=== PATIENT | male | born 1960 | race African-American/Black ===

== ENCOUNTER 2024-08-12 12:15 | Inpatient (IN) | payer OTHER ==
[2024-08-12 12:54] VITALS: BMI 24.7
[2024-08-12] MEDS ORDERED: guaiFENesin 600 MG TABLET.ER (FP) PO PRN (12:56)
[2024-08-12] MEDS ORDERED: DICYCLOMINE HCL 10 MG CAPSULE PO PRN (12:56)
[2024-08-12] MEDS ORDERED: LOPERAMIDE HCL 2 MG CAPSULE PO PRN (12:56)
[2024-08-12] MEDS ORDERED: NICOTINE POLACRILEX 2 MG LOZENGE BC PRN (12:56)
[2024-08-12] MEDS ORDERED: BENZOCAINE/MENTHOL (CHLORASEPTIC ) LOZENGE MM PRN (12:56)
[2024-08-12] MEDS ORDERED: BISMUTH SUBSALICYLATE 262 MG/15 ML BTL PO PRN (12:56)
[2024-08-12] MEDS ORDERED: IBUPROFEN 600 MG TABLET (FP) PO PRN (12:56)
[2024-08-12] MEDS ORDERED: IBUPROFEN 400 MG TABLET (FP) PO PRN (12:56)
[2024-08-12] MEDS ORDERED: ACETAMINOPHEN 325 MG TABLET (FP) PO PRN (12:56)
[2024-08-12] MEDS ORDERED: POLYETHYLENE GLYCOL (HEALTHYLAX) 3350 17 GM PACKET PO PRN (12:56)
[2024-08-12] MEDS ORDERED: MAG HYDROX/AL HYDROX/SIMETH 30 ML UNIT-DOSE CUP PO PRN (12:56)
[2024-08-12] MEDS ORDERED: NICOTINE POLACRILEX 2 MG GUM BUC PRN (12:56)
[2024-08-12] MEDS ORDERED: BENZONATATE 200 MG CAPSULE PO PRN (12:56)
[2024-08-12] MEDS ORDERED: METHOCARBAMOL 500 MG TABLET PO PRN (12:56)
[2024-08-12] MEDS ORDERED: MAGNESIUM HYDROX 2400MG/30ML ORAL SUSPENSION 30 ML CUP PO PRN (12:56)
[2024-08-12] MEDS ORDERED: NALOXONE (NARCAN) HCL 4 MG/0.1 ML SPRAY NS PRN (12:56)
[2024-08-12] MEDS ORDERED: ALBUTEROL SO4 HFA INHALER IH PRN (16:06)
[2024-08-12] MEDS: OLANZapine 7.5 MG TABLET PO SCH (22:47)
[2024-08-12] MEDS: MELATONIN 5 MG TABLETS PO SCH (22:48)
[2024-08-12] MEDS: TAMSULOSIN HCL 0.4 MG CAP PO SCH (22:48)
[2024-08-12] MEDS: THIAMINE 100 MG TABLET PO SCH (22:48)
[2024-08-12] MEDS: BUDESONIDE/FORMETEROL FUMARATE 160/4.5 mcg INHALER IH SCH (22:48)
[2024-08-13] MEDS: SERTRALINE HCL 50 MG TABLET (FP) PO SCH (09:43)
[2024-08-13] MEDS: FOLIC ACID 1 MG TABLET (FP) PO SCH (09:43)
[2024-08-13] MEDS: PRENATAL VITAMINS W/ FOLIC ACID TABLET (FP) PO SCH (09:43)
[2024-08-13] MEDS: TIOTROPIUM BROMIDE 2.5 MCG (SPIRIVA) RESPIMAT INHALER IH SCH (09:47)
[2024-08-13] MEDS: CHOLECALCIFEROL (VIT D3) 5000 UNITS (125 MCG) CAP PO SCH (10:49)
[2024-08-13 11:51] LABS: EPI CELLS 0 /uL (0-25.1); HYALINE CASTS 1 /uL (0-3.1); PH,URINE 7.5 (5.0-8.0); URINE APPEARANCE CLEAR; URINE BACTERIA 3167 /uL (0-1359); URINE BILIRUBIN NEGATIVE (NEGATIVE); URINE COLOR YELLOW; URINE GLUCOSE (UA) NEGATIVE (NEGATIVE); URINE KETONE NEGATIVE (NEGATIVE); URINE LEUK ESTERASE 2+ (NEGATIVE); URINE NITRITE NEGATIVE (NEGATIVE); URINE PROTEIN NEGATIVE (NEGATIVE); URINE RBC 3 /uL (0-23.9); URINE UROBILINOGEN 0.2 mg/dL (0.2-1.0); URINE WBC 107 /uL (0-25.8)
[2024-08-13] MEDS ORDERED: diazePAM 5 MG TABLET PO PRN (12:30)
[2024-08-13] MEDS: NITROFURANTOIN MONOHYD/M-CRYST 100 MG CAPSULE PO SCH (13:44)
[2024-08-13] MEDS: diazePAM 5 MG TABLET PO SCH (17:18)
[2024-08-14] MEDS: ONDANSETRON *ODT* 4 MG TABLET SL PRN (17:18)
[2024-08-15] MEDS: diazePAM 5 MG TABLET PO SCH (06:04)
[2024-08-16] MEDS: diazePAM 5 MG TABLET PO SCH (05:58)
[2024-08-17] MEDS: diazePAM 5 MG TABLET PO ONE (07:16)
[2024-08-17 12:38] VITALS: BP 122/77; PULSE 90; RESP 18; TEMP 97.8
== END 2024-08-17 14:25 | disposition other institution (70) | DRG 774 ==
LOC: YASAS 12:15 → Y3N 14:40
PROVIDERS: ADMIT Allergy & Immunology; ATTEND Family Medicine Addiction Medicine
PROC: HZ2ZZZZ Detoxification Services for Substance Abuse Treatment (ICD-10-PCS; principal; 2024-08-12)
DX: F10.230 Alcohol dependence with withdrawal, uncomplicated (principal); F14.20 Cocaine dependence, uncomplicated; F17.210 Nicotine dependence, cigarettes, uncomplicated; F20.0 Paranoid schizophrenia; G47.00 Insomnia, unspecified; I10 Essential (primary) hypertension; J45.909 Unspecified asthma, uncomplicated; N39.0 Urinary tract infection, site not specified; N40.0 Benign prostatic hyperplasia without lower urinary tract symptoms; R53.1 Weakness; Z99.89 Dependence on other enabling machines and devices; Z88.8 Allergy status to other drugs, medicaments and biological substances
CPT/HCPCS: 80305; 80307; 81003; 87811; Q0162

== ENCOUNTER 2024-08-17 14:36 | Inpatient (IN) | payer OTHER ==
[2024-08-17] MEDS ORDERED: BENZOCAINE/MENTHOL (CHLORASEPTIC ) LOZENGE MM PRN (17:15)
[2024-08-17] MEDS ORDERED: BENZONATATE 200 MG CAPSULE PO PRN (17:15)
[2024-08-17] MEDS ORDERED: NALOXONE HCL 0.4 MG/ML VIAL IVPUSH PRN (17:15)
[2024-08-17] MEDS ORDERED: IBUPROFEN 600 MG TABLET (FP) PO PRN (17:15)
[2024-08-17] MEDS ORDERED: NICOTINE POLACRILEX 2 MG GUM BUC PRN (17:15)
[2024-08-17] MEDS ORDERED: NALOXONE (NARCAN) HCL 4 MG/0.1 ML SPRAY NS PRN (17:15)
[2024-08-17] MEDS ORDERED: MAGNESIUM HYDROX 2400MG/30ML ORAL SUSPENSION 30 ML CUP PO PRN (17:15)
[2024-08-17] MEDS ORDERED: ALBUTEROL SO4 HFA INHALER IH PRN (17:15)
[2024-08-17] MEDS ORDERED: IBUPROFEN 400 MG TABLET (FP) PO PRN (17:15)
[2024-08-17] MEDS ORDERED: NICOTINE POLACRILEX 2 MG LOZENGE BC PRN (17:15)
[2024-08-17] MEDS ORDERED: MAG HYDROX/AL HYDROX/SIMETH 30 ML UNIT-DOSE CUP PO PRN (17:15)
[2024-08-17] MEDS ORDERED: POLYETHYLENE GLYCOL (HEALTHYLAX) 3350 17 GM PACKET PO PRN (17:15)
[2024-08-17] MEDS ORDERED: guaiFENesin 600 MG TABLET.ER (FP) PO PRN (17:15)
[2024-08-17] MEDS ORDERED: LOPERAMIDE HCL 2 MG CAPSULE PO PRN (17:15)
[2024-08-17] MEDS: MELATONIN 5 MG TABLETS PO SCH (21:52)
[2024-08-17] MEDS: THIAMINE 100 MG TABLET PO SCH (21:53)
[2024-08-17] MEDS: TAMSULOSIN HCL 0.4 MG CAP PO SCH (21:53)
[2024-08-17] MEDS: OLANZapine 7.5 MG TABLET PO SCH (21:53)
[2024-08-17] MEDS: NITROFURANTOIN MACROCRYSTAL 50 MG CAPSULE (FP) PO SCH (21:54)
[2024-08-17] MEDS: BUDESONIDE/FORMETEROL FUMARATE 160/4.5 mcg INHALER IH SCH (21:59)
[2024-08-18] MEDS: PRENATAL VITAMINS W/ FOLIC ACID TABLET (FP) PO SCH ×2 (06:46→09:45)
[2024-08-18 07:50] VITALS: RESP 18
[2024-08-18] MEDS: SERTRALINE HCL 50 MG TABLET (FP) PO SCH (09:45)
[2024-08-18] MEDS: FOLIC ACID 1 MG TABLET (FP) PO SCH (09:45)
[2024-08-18] MEDS: CHOLECALCIFEROL (VIT D3) 5000 UNITS (125 MCG) CAP PO SCH (09:46)
[2024-08-18] MEDS: TIOTROPIUM BROMIDE 2.5 MCG (SPIRIVA) RESPIMAT INHALER IH SCH (09:47)
[2024-08-18] MEDS ORDERED: PATIENT'S OWN MEDICATION (NON-FORMULARY) (Tiotropium Bromide [Spiriva Handihaler] 18 MCG C IH SCH (10:00)
[2024-08-18] MEDS ORDERED: PATIENT'S OWN MEDICATION (NON-FORMULARY) (Sertraline Hcl [Zoloft] 100 MG Tablet) PO SCH (10:00)
[2024-08-18] MEDS: ACETAMINOPHEN 325 MG TABLET (FP) PO PRN (18:11)
[2024-08-19 06:50] VITALS: BP 129/84; PULSE 82; TEMP 97.2
[2024-08-19 11:40] LABS: HEMATOCRIT 36.5 % (35.4-49); HEMOGLOBIN 12.4 GM/dL (11.7-16.9); MCH 30.8 pg (25.7-33.7); MCHC 33.9 g/dl (32.0-35.9); MEAN CELL VOLUME 91.1 fl (80-96); MEAN PLT VOLUME 8.6 fl (7.5-11.1); PLATELET COUNT 164 10^3/uL (134-434); RBC 4.01 M/mm3 (4.00-5.60); RDW 15.5 % (11.9-15.9); WHITE BLOOD COUNT 6.1 K/mm3 (4.0-10.0)
[2024-08-19 11:42] LABS: POTASSIUM 4.7 mmol/L (3.5-5.1)
[2024-08-19 11:47] LABS: BLOOD UREA NITROGEN 21.5 mg/dL (7-18)
[2024-08-19 11:48] LABS: ALBUMIN 3.2 g/dl (3.4-5.0); CALCIUM 9.6 mg/dL (8.5-10.1)
[2024-08-19 11:52] LABS: BILIRUBIN,TOTAL 0.2 mg/dL (0.2-1); CREATININE 0.9 mg/dL (0.55-1.3); TOT PROT 6.4 g/dl (6.4-8.2)
[2024-08-19] MEDS: METHOCARBAMOL 500 MG TABLET PO PRN (21:37)
== END 2024-08-20 16:25 | disposition left against medical advice (07) | DRG 770 ==
LOC: YASAS 14:36 → Y5N 14:38
PROVIDERS: ADMIT Allergy & Immunology; ATTEND Psychiatry & Neurology Pain Medicine
PROC: HZ42ZZZ Group Counseling for Substance Abuse Treatment, Cognitive-Behavioral (ICD-10-PCS; principal; 2024-08-17)
DX: F10.20 Alcohol dependence, uncomplicated (principal); F14.20 Cocaine dependence, uncomplicated; F17.210 Nicotine dependence, cigarettes, uncomplicated; F20.9 Schizophrenia, unspecified; G47.00 Insomnia, unspecified; I10 Essential (primary) hypertension; N40.0 Benign prostatic hyperplasia without lower urinary tract symptoms; G89.4 Chronic pain syndrome
CPT/HCPCS: 36415; 80053; 82140; 85027; 86780